=== PATIENT | female | born 1965 | race Caucasian/White ===

== ENCOUNTER → 2023-02-28 | Outpatient (CLI) | payer BC ==
--- NOTE | 2023-02-28 12:53 | Diagnostic Imaging Report ---
INDICATION: Left knee pain. COMPARISON: None FINDINGS: Multiple radiographic views of the left knee were obtained and show no evidence of acute fracture or dislocation. Osseous structures are intact. There are advanced osteoarthritic changes consisting of tricompartmental joint space narrowing with prominent osteophyte formations. There is also lateral subluxation of the tibia in respect to the femur. Otherwise, joint spaces are maintained. There is no large joint effusion. No unexpected radiopaque foreign bodies are seen. IMPRESSION: 1. Advanced osteoarthritic changes of the left knee, but no evidence of acute fracture or dislocation. Dictated by: Dictated on workstation # [id number]
== END ==
LOC: ORTHO 10:29
PROVIDERS: ATTEND Orthopaedic Surgery
DX: M17.12 Unilateral primary osteoarthritis, left knee (principal)
CPT/HCPCS: 20610; 73564; G0463; 99203

== ENCOUNTER → 2023-03-08 | Outpatient (CLI) | payer BC ==
--- NOTE | 2023-03-08 11:46 | Diagnostic Imaging Report ---
INDICATION: Routine screening. Comparison is made with prior mammogram from 06/27/2018. 2-D and 3-D bilateral screening mammography was performed with CAD. Both breasts are heterogeneously dense, limiting the sensitivity of mammography. No mass or malignant-appearing microcalcifications are identified. Axillae are unremarkable. IMPRESSION: No mammographic features suspicious for malignancy are identified. ACR BI-RADS Category 1: Negative. Result letter will be mailed to the patient. Note: At least 10% of breast cancer is not imaged by mammography. BI-RADS Category 1 Dictated by: Dictated on workstation # [id number]
== END ==
LOC: RAD 11:03
DX: Z12.31 Encounter for screening mammogram for malignant neoplasm of breast (principal); M25.571 Pain in right ankle and joints of right foot
CPT/HCPCS: 77063; 77067

== ENCOUNTER → 2023-03-20 | Outpatient (CLI) | payer BC | LOC: ORTHO 11:40 | PROVIDERS: ATTEND Orthopaedic Surgery | DX: S62.619A Displaced fracture of proximal phalanx of unspecified finger, initial encounter for closed fracture (principal); X58.XXXA Exposure to other specified factors, initial encounter | CPT/HCPCS: 99213 ==

== ENCOUNTER → 2023-04-03 | Outpatient (CLI) | payer BC ==
--- NOTE | 2023-04-03 17:44 | Diagnostic Imaging Report ---
Indication: Left finger fractures. Time of Exam: 1:11 PM Comparison is made with prior outside radiographs from 03/13/2023. Transversely oriented fracture through the base of the proximal phalanx of the 5th finger is again noted. Fracture line remains clearly visible without significant healing. Alignment is anatomic. Remaining phalanges as well as metacarpals are intact. Carpus is unremarkable. IMPRESSION: Fracture at the base of the proximal phalanx, 5th finger. Fracture line remains clearly visible. Alignment is anatomic. Dictated by: Dictated on workstation # [id number]
== END ==
LOC: ORTHO 12:57
PROVIDERS: ATTEND Orthopaedic Surgery
DX: S62.617A Displaced fracture of proximal phalanx of left little finger, initial encounter for closed fracture (principal); X58.XXXA Exposure to other specified factors, initial encounter
CPT/HCPCS: 73140; 99213

== ENCOUNTER → 2023-04-11 | Outpatient (CLI) | payer BC ==
--- NOTE | 2023-04-11 11:28 | Diagnostic Imaging Report ---
PROCEDURE: Pelvic comp/transvaginal sonogram. TECHNIQUE: Complete transabdominal and transvaginal pelvic ultrasound was performed. In addition, limited pelvic Doppler was performed. INDICATION: Right lower quadrant pain. Uterus is anteverted measuring 5.7 x 3.8 x 3.8 cm. Endometrium is 5 mm in thickness. There is a small cervical nabothian cyst. There are areas of heterogeneity in both anterior and posterior fundal regions which may represents fibroids. Largest area is posteriorly measuring approximately 16 mm. Right ovary cannot be visualized due to overlying bowel gas. Left ovary measures 1.7 x 1.1 x 2.3 cm. There is blood flow to left ovary. No adnexal mass or free fluid is detected. IMPRESSION: 1. Probable small uterine fibroids. 2. Nonvisualized right ovary due to overlying bowel gas. The study is otherwise unremarkable. Dictated by: Dictated on workstation # [id number]
== END ==
LOC: RAD 09:52
PROVIDERS: ATTEND Obstetrics & Gynecology
DX: R10.31 Right lower quadrant pain (principal)
CPT/HCPCS: 76830; 76856

== ENCOUNTER → 2023-05-08 | Outpatient (CLI) | payer BC ==
--- NOTE | 2023-05-08 14:36 | Diagnostic Imaging Report ---
EXAMINATION: Left fingers 2 or more views HISTORY: Fifth finger injury COMPARISON: 04/03/2023 FINDINGS: There is unchanged fracture at the base of the proximal phalanx of the fifth finger. No new fracture seen. Joint spaces are normal. IMPRESSION: 1. Unchanged alignment. Fracture at the base of the left fifth finger proximal phalanx. Dictated by: Dictated on workstation # [id number]
== END ==
LOC: ORTHO 10:38
PROVIDERS: ATTEND Orthopaedic Surgery
DX: S62.647D Nondisplaced fracture of proximal phalanx of left little finger, subsequent encounter for fracture with routine healing (principal); X58.XXXD Exposure to other specified factors, subsequent encounter
CPT/HCPCS: 20610; 73140

== ENCOUNTER → 2023-05-21 | Outpatient (CLI) | payer OTHER ==
--- NOTE | 2023-05-21 13:09 | Diagnostic Imaging Report ---
INDICATION: Neck pain. COMPARISON: None FINDINGS: Frontal, lateral, and open-mouth radiographic views of the cervical spine were obtained. Flexion and extension views were also provided in the lateral projection. AP static alignment is maintained. There is no significant anterolisthesis or retrolisthesis. There is no evidence of jumped facets. There is no abnormal translation with flexion or extension. Open-mouth view shows normal C1-C2 alignment. Patient is status post previous anterior fusion of C6 and C7. Hardware appears well seated and appropriately positioned. No unexpected radiopaque foreign bodies are seen. Moderate multilevel degenerative changes are noted and consists of intervertebral disc height loss with prominent anterior and posterior endplate osteophyte formations extending from C3-C4 through C5-C6. No acute fracture is seen. Surrounding soft tissue structures are unremarkable. IMPRESSION: 1. No acute fracture or dislocation lumbar spine. 2. Postsurgical changes of previous anterior fusion of C6-C7. 3. Moderate multilevel degenerative changes. Dictated by: Dictated on workstation # [id number]
== END ==
LOC: RAD 10:28
PROVIDERS: ATTEND Family Medicine
DX: M47.812 Spondylosis without myelopathy or radiculopathy, cervical region (principal); Z98.890 Other specified postprocedural states
CPT/HCPCS: 72050

== ENCOUNTER 2023-06-06 06:04 | Outpatient (CLI) | payer BC ==
[~2023-06-06] VITALS: Ht 182.8 cm; Wt 85.7 kg
[2023-06-06] MEDS ORDERED: HYDR-3820 PO (15:37)
[2023-06-06] MEDS ORDERED: METH-732 PO (15:37)
[2023-06-06] MEDS ORDERED: LISI1TAB48 PO (15:37)
[2023-06-06] MEDS ORDERED: AMLO-251 PO (15:37)
== END 2023-06-06 15:47 | disposition home or self-care (01) ==
LOC: PREOP 06:04
PROVIDERS: ATTEND Surgery
DX: Z01.818 Encounter for other preprocedural examination (principal)

== ENCOUNTER 2023-07-04 11:17 | Outpatient (CLI) | payer BC ==
[~2023-07-04] VITALS: Ht 180.3 cm; Wt 86.4 kg
[~2023-07-04 11:17] MED LIST changes: -ACYC400T21 PO
[2023-07-04 12:17] VITALS: BP 138/78
[2023-07-04] MEDS ORDERED: ACYC400T21 PO (12:31)
== END 2023-07-04 13:19 | disposition home or self-care (01) ==
LOC: PREOP 11:17
PROVIDERS: ATTEND Orthopaedic Surgery
DX: Z01.818 Encounter for other preprocedural examination (principal)

== ENCOUNTER → 2023-07-04 | Outpatient (CLI) | payer BC ==
[~2023-07-04] MED LIST: ACYC400T21 PO; AMLO-251 PO; HYDR-3820 PO; LISI1TAB48 PO; METH-732 PO
== END ==
LOC: ORTHO 10:43
PROVIDERS: ATTEND Orthopaedic Surgery
DX: M17.12 Unilateral primary osteoarthritis, left knee (principal)

== ENCOUNTER 2023-08-14 10:38 | Outpatient (CLI) | payer BC ==
[~2023-08-14] VITALS: Ht 180.3 cm; Wt 87.8 kg
[~2023-08-14 10:38] MED LIST changes: +ACYC400T21 PO
[2023-08-14 10:55] VITALS: BP 136/87
[2023-08-14 11:10] LABS: BASOPHILS # (AUTO) 0.1 10^3/uL (0.0-0.1); BASOPHILS % (AUTO) 1 % (0-10); EOSINOPHILS # (AUTO) 0.1 10^3/uL (0.0-0.3); EOSINOPHILS % (AUTO) 1 % (0-10); HEMATOCRIT 41 % (35-52); HEMOGLOBIN 14.3 g/dL (11.5-16.0); LYMPHOCYTES # (AUTO) 2.4 10^3/uL (1.0-4.0); LYMPHOCYTES % (AUTO) 31 % (12-44); MEAN CORPUSCULAR HEMOGLOBIN 33 pg (25-34); MEAN CORPUSCULAR HGB CONC 35 g/dL (32-36); MEAN CORPUSCULAR VOLUME 95 fL (80-99); MEAN PLATELET VOLUME 10.2 fL (9.0-12.2); MONOCYTES # (AUTO) 0.6 10^3/uL (0.0-1.0); MONOCYTES % (AUTO) 8 % (0-12); NEUTROPHILS # (AUTO) 4.4 10^3/uL (1.8-7.8); NEUTROPHILS % (AUTO) 58 % (42-75); PLATELET COUNT 338 10^3/uL (130-400); WHITE BLOOD COUNT 7.6 10^3/uL (4.3-11.0)
[2023-08-14 11:20] LABS: BACTERIA,URINE NEGATIVE /HPF; BILIRUBIN,URINE NEGATIVE (NEGATIVE); CLARITY,URINE CLEAR; COLOR,URINE YELLOW; GLUCOSE, URINE (UA) NEGATIVE (NEGATIVE); KETONES,URINE NEGATIVE (NEGATIVE); LEUKOCYTE ESTERASE ,URINE NEGATIVE (NEGATIVE); NITRITE,URINE NEGATIVE (NEGATIVE); PROTEIN,URINE NEGATIVE (NEGATIVE)
[2023-08-14 11:22] LABS: CALCIUM 9.7 MG/DL (8.5-10.1)
[2023-08-14 11:26] LABS: CREATININE SERUM 0.63 MG/DL (0.60-1.30)
== END 2023-08-14 11:59 ==
LOC: PREOP 10:38
PROVIDERS: ATTEND Orthopaedic Surgery
DX: Z01.818 Encounter for other preprocedural examination (principal); M17.11 Unilateral primary osteoarthritis, right knee
CPT/HCPCS: 36415; 80048; 81000; 85025; 87081

== ENCOUNTER 2023-08-20 07:09 | Day surgery (SDC) | payer BC ==
[2023-08-20] VITALS (10 sets, daily range): BP systolic 100–166; BP diastolic 66–90
[~2023-08-20] VITALS: Ht 180.3 cm; Wt 87.8 kg
[2023-08-20] MEDS ORDERED: ceFAZolin INJECTION 2,000 MG in NS (IVPB) 50 ML 50 ML IV ONE (07:30)
[2023-08-20] MEDS: LACTATED RINGERS 1,000 ML 1,000 ML IV PRN ×3 (07:55→10:30)
[2023-08-20] MEDS ORDERED: ONDANSETRON INJECTION 4 MG/2 ML (SDV) IVP PRN (08:30)
[2023-08-20] MEDS ORDERED: TRANEXAMIC ACID 100 MG/ML 10 ML INJECTION ONE (08:43)
[2023-08-20] MEDS ORDERED: KETAMINE 50 MG/5 ML SYRINGE ONE (08:47)
[2023-08-20] MEDS ORDERED: PHENYLEPHRINE 100 MCG/ML 10 ML (ANESTHESIA) SYR ONE (09:01)
[2023-08-20] MEDS ORDERED: ONDANSETRON INJECTION 4 MG/2 ML (SDV) ONE (09:05)
[2023-08-20] MEDS ORDERED: MIDAZOLAM INJ 2 MG/2 ML VIAL ONE (09:11)
[2023-08-20] MEDS ORDERED: proPOfol INJECTION 200 MG/20 ML VIAL IV ONE (10:13)
--- NOTE | 2023-08-20 10:59 | Operative Report - Ortho ---
Operative Report Surgeon (s)/Leisure Studies Professor (s) Surgeon BRIAN MACDONALD MD Leisure Studies Professor n/a Pre-Operative Diagnosis LEFT KNEE OSTEOARTHRITIS Post-Operative Diagnosis same Operative Report Date of Procedure: Aug 20, 2023 Name of Procedure Performed: Left Total Knee Arthroplasty Description & Findings After obtaining informed consent and marking the patient in the preoperative holding area, the patient did receive IV antibiotics. Patient was taken to the operating room and anesthesia was induced. Surgical timeout was taken. The left lower extremity was prepped and draped in the usual sterile fashion. Incision was made and carried down to fascia. Arthrotomy was performed on the medial side of the patella. Patella was retracted laterally and knee was flexed. Found to have circumferential osteophtye around the distal femur as well as exposed bone in the medial compartment. Hole was made in the distal femur for the intramedullary distal femoral cutting guide. Resection was made then the femur was sized as a 3. 4-in-1 block for a size [address]. Anterior cut was made and there was no notch. Posterior cut was made followed by the chamfers. Box cut was performed. Lug holes were drilled. Attention was turned to the tibial side, extramedullary tibial guide was put into place and aligned with the tibial crest. It was set to take 2 mm off of the affected medial side. Drop trevin was used to confirm alignment. Resection was made and was parallel to the joint line. Tibial bone block was removed. Lamina calender let off helper was put into place and the menisci and posterior osteophytes were removed. The knee was trialed with a size 3 femur and a size 3 tibia with an 11 mm poly trial. It was found to come out to full extension and flexed beyond 120 degrees. It was stable to varus and valgus stress throughout its range of motion. This was accepted. Knee was brought out into extension and the patella was prepared for an inset patellar button. Trial patella was placed and tracked well. Trial implants were removed. Tibial tray was pinned and punched. The cut bone surfaces were lavaged with pulsatile normal saline. Cement was mixed. Implants were opened and assembled on the back table. Cement was applied to the cut bone surfaces as well as the implant surfaces. A size 3 tibial component was impacted into place and excess cement was removed using a freer. A size 3 femoral component was impacted into place and excess cement was removed using a freer. Tibial tray was lavaged with saline. An 11 mm thick polyethylene component was locked into placed and the locking mechanism was elvira cked. Knee was brought into extension. Patella was irrigated and dried; patellar component was cemented into position. The cement was allowed to set. Irrisept soak was performed. The knee was once again trialed; found to come to full extension, flexed beyond 120 degrees, and was stable to varus and valgus stress. Tourniquet was dropped and electrocautery was used for hemostasis. Fascial layer was closed with #2 Stratafix. The subcutaneous layer was closed with 2-0 Vicryl. The skin was closed with gage. Wound was dressed with steri-strips, xeroform, 4x4s, ABD, webril, and EWA wrap. Patient tolerated the procedure well and was stable to the recovery room. Anesthesia Type Spinal Estimated Blood Loss minimal Specimen(s) collected/removed None BRIAN MACDONALD MD Aug 20, 2023 10:59
[2023-08-20] MEDS ORDERED: ACETAMINOPHEN 500 MG TABLET PO PRN (11:00)
[2023-08-20] MEDS ORDERED: BISACODYL 5 MG TABLET PO PRN (11:00)
[2023-08-20] MEDS ORDERED: MILK OF MAGNESIA 400 MG/5 ML 30 ML UDC PO PRN (11:00)
[2023-08-20] MEDS ORDERED: ONDANSETRON INJECTION 4 MG/2 ML (SDV) IV PRN (11:00)
[2023-08-20] MEDS ORDERED: morphine INJ 4 MG/ML 1 ML (VIAL/SYRINGE) IVP PRN ×4 (11:15→15:15)
[2023-08-20] MEDS ORDERED: HYDROcodone/ACETAMINOPHEN 10/325 TABLET PO PRN (11:15)
--- NOTE | 2023-08-20 11:30 | Diagnostic Imaging Report ---
CLINICAL INDICATION: Postop knee replacement. EXAM: X-ray of the left knee, two views. COMPARISON: None. FINDINGS: There is left total knee arthroplasty with components in good position. There is air involving the left knee and joint space anteriorly. Compression device and midline skin gage are noted anteriorly. IMPRESSION: There is a left total knee arthroplasty with components in good position. There is no unexpected radiodense foreign object. Dictated by: Dictated on workstation # [id number]
[2023-08-20] MEDS: METHOCARBAMOL 750 MG TABLET PO SCH ×2 (13:40→19:43)
--- NOTE | 2023-08-20 13:49 | Physical Therapy Evaluation ---
PT Evaluation-General Medical Diagnosis Admission Date August 20, 2023 Medical Diagnosis: left knee OA Onset Date: Aug 20, 2023 Therapy Diagnosis Therapy Diagnosis: impaired mobility,weakness Precautions Precautions/Isolations: Standard Precautions Weight Bear Status Right Lower Extremity: Right Full Weight Bearing Left Lower Extremity: Left Weight Bearing/Tolerated Referral Physician: Rosa Reason for Referral: Evaluation/Treatment Medical History Pertinent Medical History: OA Current History s/p elective left TKR Reviewed History: Yes Social History Home: Single Level Current Living Status: Spouse Prior Prior Level of Function SCALE: Activities may be completed with or without assistive devices. 3-Zymstmmiku-kzlnbej completes the activity by him/herself with no assistance from a helper. 5-Set-up or Clean-up Assistance-helper sets up or cleans up; patient completes activity. [place] assists only prior to or following the activity. 4-Supervision or Touching Assistance-helper provides verbal cues and/or touching/steadying and/or contact guard assistance as patient completes activity. Assistance may be provided throughout the activity or intermittently. 3-Partial/Moderate Assistance-helper does LESS THAN HALF the effort. Levant lifts, holds or supports trunk or limbs, but provides less than half the effort. 2-Substantial/Maximal Assistance-helper does MORE THAN HALF the effort. [place]ant lifts or holds trunk or limbs and provides more than half the effort. 7-Ixrnjhkgm-gnyavn does ALL the effort. Patient does none of the effort to complete the activity. Or, the assistance of 2 or more helpers is required for the patient to complete the activity. If activity was not attempted, code reason: 7-Patient Refused. 9-Not Applicable-not attempted and the patient did not perform the activity before the current illness, exacerbation or injury. 10-Not Attempted due to Environmental Limitations-(lack of equipment, weather restraints, etc.). 88-Not Attempted due to Medical Conditions or Safety Concerns. Bed Mobility: 6 Transfers (B,C,W/C): 6 Gait: 6 Stairs: 6 Indoor Mobility (Ambulation): Independent Stairs: Independent Prior Devices Use: None PT Evaluation-Current Subjective Patient agrees to PT. Pain Numeric Pain Scale: 10-Worst Possible Pain Location: Left Location Body Site: Knee Pain Description: Acute Comment: all pain meds issued Objective Patient Orientation: Normal For Age Attachments: Recio Catheter, IV ROM/Strength ROM Lower Extremities left knee flexion 60 degrees, extension 0/right LE WFL Strength Lower Extremities left LE 3/5 grossly, right LE 5/5 Integumentary/Posture Bladder Incontinence: Recio Cath Posture WFL Neuromuscular (Tone, Coordination, Reflexes) grossly intact Sensory Vision: Functional Hearing: Functional Transfers Lying to Sitting/Side of Bed(Q: 4 Sit to Stand (QC): 4 Chair/Kob-ek-Hfchs Xfer(QC): 4 Gait Mode of Locomotion: Walk Anticipated Mode of Locomotion: Walk Walk 10 feet (QC): 4 Walk 50 ft with 2 Turns(QC): 88 Distance: 30' Gait Assistive Device: FWW Comments/Gait Description slow, antalgic Balance Sitting Static: Normal Sitting Dynamic: Normal Standing Static: Fair Standing Dynamic: Fair Assessment/Needs Patient will benefit from skilled PT to address functional strength and mobility to improve current LOF to safely return to home at maximum LOF. Rehab Potential: Good PT Detention Goals Broadcast Journalist Goals PT Broadcast Journalist Goals Time Frame: Aug 25, 2023 Roll Left & Right (QC): 6 Sit to Lying (QC): 6 Lying-Sitting on Side/Bed(QC): 6 Sit to Stand (QC): 6 Chair/Fhn-qu-Ihwno Xfer(QC): 6 Toilet Transfer (QC): 6 Walk 10 feet (QC): 6 Walk 50ft with 2 Turns (QC): 6 Walk 150 ft (QC): 6 PT Plan Problem List Problem List: Activity Tolerance, Gait, Transfer, Bed Mobility, ROM Treatment/Plan Treatment Plan: Continue Plan of Care Treatment Plan: Bed Mobility, Education, Functional Activity Joshua, Functional Strength, Gait, Safety, Therapeutic Exercise, Transfers Treatment Duration: Aug 25, 2023 Frequency: 11 times per week Estimated Hrs Per Day: .5 hour per day Patient and/or Family Agrees t: Yes Time Time In: 1321 Time Out: 1336 DATE: Aug 20, 2023 Total Billed Treatment Time: 15 Total Billed Treatment 1 visit [facility] 15 min LUIS MIGUEL LARSEN PT Aug 20, 2023 13:49
--- NOTE | 2023-08-20 14:08 | Occupational Therapy Eval ---
OT Evaluation-General/PLF Medical Diagnosis Admission Date Medical Diagnosis: left knee OA Onset Date: Aug 20, 2023 Therapy Diagnosis Therapy Diagnosis: weakness, pain Precautions Precautions/Isolations: Standard Precautions Weight Bear Status Weight Bearing Restriction: Weight Bearing/Tolerated Location Restriction: L LE Referral Physician: Rosa Referral Reason: Self Care, Evaluation/Treatment Medical History Pertinent Medical History: OA Reviewed History: Yes Social History Home: Single Level Current Living Status: Spouse ADL-Prior Level of Function SCALE: Activities may be completed with or without assistive devices. 8-Bfsabqwbnv-mkgjfut completes the activity by him/herself with no assistance from a helper. 5-Set-up or Clean-up Assistance-helper sets up or cleans up; patient completes activity. Dailey assists only prior to or following the activity. 4-Supervision or Touching Assistance-helper provides verbal cues and/or touching/steadying and/or contact guard assistance as patient completes activity. Assistance may be provided throughout the activity or intermittently. 3-Partial/Moderate Assistance-helper does LESS THAN HALF the effort. Dailey lifts, holds or supports trunk or limbs, but provides less than half the effort. 2-Substantial/Maximal Assistance-helper does MORE THAN HALF the effort. Dailey lifts or holds trunk or limbs and provides more than half the effort. 2-Ytxnlnxpt-xuddhw does ALL the effort. Patient does none of the effort to complete the activity. Or, the assistance of 2 or more helpers is required for the patient to complete the activity. If activity was not attempted, code reason: 7-Patient Refused. 9-Not Applicable-not attempted and the patient did not perform the activity before the current illness, exacerbation or injury. 10-Not Attempted due to Environmental Limitations-(lack of equipment, weather restraints, etc.). 88-Not Attempted due to Medical Conditions or Safety Concerns. ADL PLOF Comments Independent at home. Self Care: Independent Functional Cognition: Independent Drive Self: Yes OT Current Status Subjective Agreeable to therapy Pain Numeric Pain Scale: 8 Location: Left Location Body Site: Knee Comment: RN aware and [id number] agarwal meds Mental Status/Objective Patient Orientation: Person, Place, Time, Situation Attachments: Recio Catheter, Polar Pack Current Hearing Aids: No Dentures/Partials: No Hand Dominance: Right Upper Extremity ROM BUE ROM WFLs Upper Extremity Coordination BUE WFLS, intact FMC/GMC Upper Extremity Strength WFLs ADL-Treatment Eating (QC): 6 Oral Hygiene (QC): 6 Shower/Bathe Self (QC): 7 Upper Body Dressing (QC): 5 Lower Body Dressing (QC): 3 On/Off Footwear (QC): 1 Toileting Hygiene (QC): 3 Education OT Patient Education: Correct positioning, Modified ADL techniques, Progress toward Goal/Update tx plan, Purpose of tx/functional activities, Reviewed precautions, Rehab process, Safety issues, Transfer techniques, Use of adapted equipment Teaching Recipient: Patient Teaching Methods: Demonstration, Discussion Response to Teaching: Verbalize Understanding, Reinforcement Needed OT Chcf Goals Chcf Goals Eating (QC): 6 Oral Hygiene (QC): 6 Toileting Hygiene (QC): 6 Shower/Bathe Self (QC): 6 Upper Body Dressing (QC): 6 Lower Body Dressing (QC): 6 On/Off Footwear (QC): 6 1=Demonstrate adherence to instructed precautions during ADL tasks. 2=Patient will verbalize/demonstrate understanding of assistive devices/modifications for ADL. 3=Patient will improve strength/tolerance for activity to enable patient to perform ADL's. OT Education/Plan Problem List/Assessment Assessment: Decreased Activ Tolerance, Impaired Self-Care Skills Discharge Recommendations Plan/Recommendations: Continue POC Treatment Plan/Plan of Care Treatment,Training & Education: Yes Patient would benefit from OT for education, treatment and training to promote independence in ADL's, mobility, safety and/or upper extremity function for ADL's. Plan of Care: ADL Retraining, Functional Mobility, Group Exercise/Act as Ind, UE Funct Exercise/Act Treatment Duration: Aug 24, 2023 Frequency: 3 times per week (3-5 times per week) Rehab Potential: Guarded Up in recliner Time Start Time: 13:40 Stop Time: 13:55 DATE: Aug 20, 2023 Total Time Billed (hr/min): 15 Billed Treatment Time ALE 15 LUCILA MAGAÑA OT Aug 20, 2023 14:08
[2023-08-20] MEDS: LORazepam 0.5 MG TABLET PO PRN ×2 (15:15→23:00)
[2023-08-20] MEDS: HYDROcodone/ACETAMINOPHEN 10/325 TABLET PO PRN ×3 (15:16→23:34)
--- NOTE | 2023-08-20 15:22 | Consultation ---
JAGDISH KHALIL 08/20/23 1522: HPI History of Present Illness: HPI/Chief Complaint Pt had left knee arthroplasty performed this morning. Pt currently complains of left lateral knee pain that radiates to the front of her knee. Pain is described as a sharp and achy pain. It ranges from a 7 to a 10 out of 10 on the pain scale. She is currently requesting more pain medications. Pt denies any abdominal pain, constipation, COLEMAN, or SOB. Source: patient Date Seen 08/20/23 at 1445H. Attending Physician Alex James MD PCP Admitting Physician: Pascual Lee MD Attending Physician: Pascual Lee MD Referring Physician Date of Admission Home Medications & Allergies Home Medications Reviewed patient Home Medication Reconciliation performed by pharmacy medication reconciliations sterile technician and/or nursing. Patients Allergies have been reviewed. 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 1/2 ppd since teenager.) Substance use?: No Alcohol Use?: No Immunizations Up To Date Tetanus Booster (TDap): Unknown Hepatitis A: No Hepatitis B: No Seasonal Allergies Seasonal Allergies: Yes Current Status status: No status: No Communicates: Verbally Primary Language: Grenadian Is interpretation needed?: No Sensory deficits: Vision impairment, Hearing impairment Past Medical History Surgeries: Orthopedic (left knee arthroplasty 2022. C6-C7 fusion in in [place].) Hypertension Sexually Transmitted Disease: No HIV/AIDS: No Gastroesophageal Reflux, Diverticulosis, Hemorrhoids, Polyps Degenerate Disk Disease, Arthritis, Fractures Loss of Vision: Denies Hearing Impairment: Hard of Hearing Blood Disorders: No Adverse Reaction/Blood Tranf: No Family Medical History Diabetes mellitus 19 FATHER, , Age:79 FH: breast cancer 19 MOTHER FH: lupus G8 SISTER Glioblastoma 19 FATHER, , Age:79 Hypertension 19 MOTHER Thyroid disease 19 MOTHER G8 BROTHER G8 SISTER Review of Systems Constitutional: No chills, No dizziness, No fever, No malaise, No weakness EENTM: No ear pain, No eye pain Respiratory: No cough, No short of breath Cardiovascular: No chest pain, No palpitations Gastrointestinal: No abdominal pain, No constipation Musculoskeletal: joint pain (left knee) Psychiatric/Neurological: Denies Headache, Denies Numbness, Denies Tingling Physical Exam Physical Exam Vital Signs Vital Signs - First Documented 08/20/23 11:45 Pulse 95 Capillary Refill : Less Than 3 Seconds Height, Weight, BMI Height: '" Weight: lbs. oz. 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 Assessment/Plan Assessment and Plan Assess & Plan/Chief Complaint Assessment: Left Total Knee Arthroplasty HTN Plan: Left Total Knee Arthroplasty -continue to monitor pain -therapy will work with pt HTN -start at home BP medications -monitor labs and BP RAYNE ALVAREZ DO 08/21/23 0454: HPI History of Present Illness: HPI/Chief Complaint Chief complaint: Left knee replacement and recovery HPI: This is a 78-year-old female who presented following a left knee replacement by Dr. Rosa mendez. Home medication was restarted. Patient currently having a lot of pain. The block did not work. 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 1/2 ppd since teenager.) Past Medical History Surgeries: Orthopedic (left knee arthroplasty 2022. C6-C7 fusion in in [place].) High Cholesterol, Hypertension Family Medical History Diabetes mellitus 19 FATHER, , Age:79 FH: breast cancer 19 MOTHER FH: lupus G8 SISTER Glioblastoma 19 FATHER, , Age:79 Hypertension 19 MOTHER Thyroid disease 19 MOTHER G8 BROTHER G8 SISTER Review of Systems Constitutional: see HPI Musculoskeletal: joint pain (left knee) Physical Exam Physical Exam General Appearance: WD/WN, Anxious, Moderate Distress (in a lot of pain) Eyes: Bilateral Eye Normal Inspection, Bilateral Eye PERRL HEENT: PERRL/EOMI, Normal ENT Inspection, Pharynx Normal Neck: Full Range of Motion, Normal Inspection, Non Tender, Supple, Carotid Bruit Respiratory: Chest Non Tender, Lungs Clear, Normal Breath Sounds, No Accessory Muscle Use, No Respiratory Distress Cardiovascular: Regular Rate, Rhythm, No Edema, No Gallop, No JVD, No Murmur, Normal Peripheral Pulses Gastrointestinal: Normal Bowel Sounds, No Organomegaly, No Pulsatile Mass, Non Tender, Soft Back: Normal Inspection, No CVA Tenderness, No Vertebral Tenderness Extremity: Normal Capillary Refill, Normal Inspection, Normal Range of Motion (Except left leg), Non Tender, No Calf Tenderness, No Pedal Edema Neurologic/Psychiatric: Alert, Oriented x3, No Motor/Sensory Deficits, Normal Mood/Affect Skin: Normal Color, Warm/Dry Lymphatic: No Adenopathy Assessment/Plan Assessment and Plan Assess & Plan/Chief Complaint Assessment: Left total knee replacement Hypertension Former smoker Plan: Pain control Check labs in a.m. Supportive care Supervisory-Addendum Brief Verification & Attestation Participated in pt care: history, MDM, physical Personally performed: exam, history, MDM, supervision of care Care discussed with: Medical Student Procedures: n/a Results interpretation: Verified all documentation Verification and Attestation of Medical Student E/M Service A medical student performed and documented this service in my presence. I reviewed and verified all information documented by the medical student and made modifications to such information, when appropriate. I personally performed the physical exam and medical decision making. Rayne Alvarez Aug 21, 2023,04:52 JAGDISH KHALIL Aug 20, 2023 15:22 RAYNE ALVAREZ DO Aug 21, 2023 04:54
[2023-08-20] MEDS: morphine INJ 4 MG/ML 1 ML (VIAL/SYRINGE) IVP PRN ×3 (15:45→21:10)
[2023-08-20] MEDS: NS IV 1000 ML 1,000 ML IV SCH ×2 (16:34→19:44)
[2023-08-20] MEDS: ceFAZolin INJECTION 2,000 MG in NS (IVPB) 50 ML 50 ML IV SCH ×2 (16:35→23:34)
[2023-08-20] MEDS: ASPIRIN enteric coated 81MG TABLET PO SCH (16:35)
[2023-08-20] MEDS: CELECOXIB 100 MG CAPSULE PO SCH (19:42)
[2023-08-20] MEDS: DOCUSATE SODIUM 100 MG CAPSULE PO SCH (19:46)
[2023-08-20] MEDS ORDERED: hydrALAZINE 25 MG TABLET PO PRN (20:30)
[2023-08-20] MEDS ORDERED: ceFAZolin INJECTION 2,000 MG in NS (IVPB) 50 ML 50 ML IV SCH (21:00)
[2023-08-21] VITALS (7 sets, daily range): BP systolic 137–170; BP diastolic 79–89
[2023-08-21] MEDS: morphine INJ 4 MG/ML 1 ML (VIAL/SYRINGE) IVP PRN ×4 (01:27→16:14)
[2023-08-21] MEDS: HYDROcodone/ACETAMINOPHEN 10/325 TABLET PO PRN ×5 (03:32→22:09)
[2023-08-21] MEDS: NS IV 1000 ML 1,000 ML IV SCH ×3 (04:22→20:14)
[2023-08-21 05:26] LABS: BASOPHILS % (AUTO) 0 % (0-10); EOSINOPHILS % (AUTO) 0 % (0-10); HEMATOCRIT 35 % (35-52); HEMOGLOBIN 12.3 g/dL (11.5-16.0); LYMPHOCYTES # (AUTO) 1.2 10^3/uL (1.0-4.0); LYMPHOCYTES % (AUTO) 14 % (12-44); MEAN CORPUSCULAR HEMOGLOBIN 33 pg (25-34); MEAN CORPUSCULAR HGB CONC 36 g/dL (32-36); MEAN CORPUSCULAR VOLUME 94 fL (80-99); MONOCYTES % (AUTO) 11 % (0-12); NEUTROPHILS # (AUTO) 6.9 10^3/uL (1.8-7.8); NEUTROPHILS % (AUTO) 75 % (42-75); PLATELET COUNT 268 10^3/uL (130-400); WHITE BLOOD COUNT 9.1 10^3/uL (4.3-11.0)
[2023-08-21] MEDS: THERAPEUTIC MULTIVITAMIN W/MINERALS TABLET PO SCH (05:34)
[2023-08-21 05:45] LABS: ALBUMIN 3.8 GM/DL (3.2-4.5); BILIRUBIN,TOTAL 0.6 MG/DL (0.1-1.0); CALCIUM 8.9 MG/DL (8.5-10.1); CREATININE SERUM 0.58 MG/DL (0.60-1.30); POTASSIUM 3.5 MMOL/L (3.6-5.0); TOTAL PROTEIN 6.1 GM/DL (6.4-8.2)
[2023-08-21] MEDS: CELECOXIB 100 MG CAPSULE PO SCH ×2 (08:12→19:54)
[2023-08-21] MEDS: ASPIRIN enteric coated 81MG TABLET PO SCH ×2 (08:12→17:50)
[2023-08-21] MEDS: ACYCLOVIR 400 MG CAPSULE/TABLET PO SCH (08:13)
[2023-08-21] MEDS: METHOCARBAMOL 750 MG TABLET PO SCH ×2 (08:13→19:54)
[2023-08-21] MEDS: amLODIPine 10 MG TABLET PO SCH (08:13)
[2023-08-21] MEDS: DOCUSATE SODIUM 100 MG CAPSULE PO SCH ×2 (08:15→19:54)
[2023-08-21] MEDS ORDERED: POTASSIUM CHLORIDE 20 MEQ TABLET PO ONE (08:45)
[2023-08-21] MEDS ORDERED: NON-FORMULARY MEDICATION 1 EA EA (Lisinopril/Hydrochlorothiazide (Lisinopril-Hctz 20-25 mg PO SCH (09:00)
--- NOTE | 2023-08-21 09:36 | Progress Note - Ortho ---
Progress Note Subjective Date of Exam 08/21/23 Chief Complaint POD #1 L TKA HPI/Events since last exam having significant issues with pain control (narcotic exposure prior to surgery), was able to get up with therapy yesterday, concerned that block was not effective Review of Systems - Allergies: Coded Allergies: Penicillins (Unverified Allergy, Severe, HIVES, 08/14/23) Home Meds Reported Medications Acyclovir (Acyclovir) 400 Mg Tablet, 400 MG PO DAILY, TAB 07/04/23 Hydrocodone/Acetaminophen (Hydrocodone-Acetamin 10-325 mg) 10 Mg-325 Mg Tablet, 1 EACH PO QID PRN for PAIN, TAB 06/06/23 Methocarbamol (Methocarbamol) 750 Mg Tablet, 750 MG PO BID, % 06/06/23 Amlodipine Besylate (Amlodipine Besylate) 10 Mg Tablet, 10 MG PO DAILY, TAB 06/06/23 Lisinopril/Hydrochlorothiazide (Lisinopril-Hctz 20-25 mg Tab) 20 Mg-25 Mg Tablet, 1 EACH PO DAILY, TAB 06/06/23 Objective Exam L Knee: Dressing C/D/I, +DF of ankle, no s/s of DVT Vital Signs Vital Signs Date Time Temp Pulse Resp B/P (MAP) Pulse Ox O2 Delivery O2 Flow Rate FiO2 08/21/23 07:20 36.8 105 18 170/89 (116) 95 Room Air 08/21/23 03:25 36.9 107 18 152/82 (105) 95 Room Air 08/20/23 23:48 36.8 106 18 155/81 (105) 97 Room Air 08/20/23 20:12 37.1 106 20 156/90 (112) 96 Room Air 08/20/23 19:45 Room Air 08/20/23 16:15 36.5 107 18 166/87 (113) 96 Room Air 08/20/23 11:45 36.4 95 18 131/80 (97) 97 Room Air 08/20/23 11:30 36.6 18 125/76 (92) 98 Room Air 08/20/23 11:30 Room Air 08/20/23 11:22 Room Air 08/20/23 11:20 18 122/74 (90) 98 Room Air 08/20/23 11:16 Room Air 11/27/23 11:10 18 118/75 (89) 99 Room Air 08/20/23 11:06 Room Air 08/20/23 11:00 18 100/71 (81) 98 Room Air 08/20/23 11:00 Room Air 08/20/23 10:50 Room Air 08/20/23 10:50 18 106/76 (86) 98 Room Air 08/20/23 10:41 Room Air 08/20/23 10:41 36.4 18 106/66 (79) 98 Room Air I & O 08/21/23 06:59 Intake Total 6550 ml Output Total 6725 ml Balance -175 ml Lab Results Laboratory Tests 08/21/23 05:10: White Blood Count 9.1, Red Blood Count 3.70L, Hemoglobin 12.3, Hematocrit 35, Mean Corpuscular Volume 94, Mean Corpuscular Hemoglobin 33, Mean Corpuscular Hemoglobin Concent 36, Red Cell Distribution Width 11.4, Platelet Count 268, Mean Platelet Volume 10.0, Immature Granulocyte % (Auto) 0, Neutrophils (%) (Auto) 75, Lymphocytes (%) (Auto) 14, Monocytes (%) (Auto) 11, Eosinophils (%) (Auto) 0, Basophils (%) (Auto) 0, Neutrophils # (Auto) 6.9, Lymphocytes # (Auto) 1.2, Monocytes # (Auto) 1.0, Eosinophils # (Auto) 0.0, Basophils # (Auto) 0.0, Immature Granulocyte # (Auto) 0.0, Sodium Level 135, Potassium Level 3.5L, Chloride Level 100, Carbon Dioxide Level 25, Anion Gap 10, Blood Urea Nitrogen 5L, Creatinine 0.58L, Estimat Glomerular Filtration Rate 105, BUN/Creatinine Ratio 9, Glucose Level 101, Calcium Level 8.9, Corrected Calcium 9.1, Total Bilirubin 0.6, Aspartate Amino Transf (AST/SGOT) 14, Alanine Aminotransferase (ALT/SGPT) 7, Alkaline Phosphatase 95, Total Protein 6.1L, Albumin 3.8 Imaging 2 postop views of left knee dated 08/20/23 were reviewed from PACS and demonstrated prior total knee arthroplasty with components in good position, no complicating features Assessment and Plan Assessment L Knee OA s/p TKA Problem List Left Knee OA s/p TKA Plan PT/OT DVT Prophylaxis Home tomorrow with home health therapy versus outpatient therapy Final Diagonsis Left Knee OA s/p TKA Level of the visit: Level 3 (global) BRIAN MACDONALD MD Aug 21, 2023 09:36
--- NOTE | 2023-08-21 09:52 | Physical Therapy Daily Note ---
PT Daily Note-Current Subjective Patient agrees to therapy. Noted improvement in left knee pain control on this date. Pain Numeric Pain Scale: 7 Location: Left Location Body Site: Knee Pain Description: Acute Comment: meds issued prior Section J - Health Conditions 1. Rarely or not at all 2. Occasionally 3. Frequently 4. Almost constantly 8. Unable to answer Pain Effect on Sleep: 3 Pain Interference with Therapy: 2 Pain Interference w/Day-to-Day: 2 Mental Status Patient Orientation: Normal For Age Transfers SCALE: Activities may be completed with or without assistive devices. 4-Czsydjybxw-bygdhun completes the activity by him/herself with no assistance from a helper. 5-Set-up or Clean-up Assistance-helper sets up or cleans up; patient completes activity. [place] assists only prior to or following the activity. 4-Supervision or Touching Assistance-helper provides verbal cues and/or touching/steadying and/or contact guard assistance as patient completes activity. Assistance may be provided throughout the activity or intermittently. 3-Partial/Moderate Assistance-helper does LESS THAN HALF the effort. [place] lifts, holds or supports trunk or limbs, but provides less than half the effort. 2-Substantial/Maximal Assistance-helper does MORE THAN HALF the effort. [place] lifts or holds trunk or limbs and provides more than half the effort. 9-Blolymxnq-nfznym does ALL the effort. Patient does none of the effort to complete the activity. Or, the assistance of 2 or more helpers is required for the patient to complete the activity. If activity was not attempted, code reason: 7-Patient Refused. 9-Not Applicable-not attempted and the patient did not perform the activity before the current illness, exacerbation or injury. 10-Not Attempted due to Environmental Limitations-(lack of equipment, weather restraints, etc.). 88-Not Attempted due to Medical Conditions or Safety Concerns. Lying to Sitting/Side of Bed(Q: 6 Sit to Stand (QC): 6 Chair/Liy-sl-Dxlfz Xfer(QC): 5 Toilet Transfer (QC): 5 Weight Bearing Right Lower Extremity: Right Full Weight Bearing Left Lower Extremity: Left Weight Bearing/Tolerated Gait Training Distance: 250' Walk 10 feet (QC): 5 Walk 50 ft with 2 Turns(QC): 5 Walk 150 ft (QC): 5 Gait Assistive Device: FWW slow, antalgic Exercises Supine Ex: Ankle pumps, Quad Set, Heel Slides, Straight leg raise Supine Reps: 15 Assessment Patient instructed to be up ad marylu in room to encourage independence. RN notified. Patient resistive with left knee flexion and use of quad due to pain. Patient educated on performing exercises PRN to improve mobility, ROM and decrease pain. Patient voices understanding. PT Care Home Goals Manager Industrial Goals PT Care Home Goals Time Frame: Aug 25, 2023 Roll Left & Right (QC): 6 Sit to Lying (QC): 6 Lying-Sitting on Side/Bed(QC): 6 Sit to Stand (QC): 6 Chair/Akw-ga-Bdnbo Xfer(QC): 6 Toilet Transfer (QC): 6 Walk 10 feet (QC): 6 Walk 50ft with 2 Turns (QC): 6 Walk 150 ft (QC): 6 PT Plan Treatment/Plan Treatment Plan: Continue Plan of Care Treatment Plan: Bed Mobility, Education, Functional Activity Joshua, Functional Strength, Gait, Safety, Therapeutic Exercise, Transfers Treatment Duration: Aug 25, 2023 Frequency: 11 times per week Estimated Hrs Per Day: .5 hour per day Patient and/or Family Agrees t: Yes Time Time In: 852 Time Out: 915 DATE: Aug 21, 2023 Total Billed Treatment Time: 23 Total Billed Treatment 1 visit EX 12 min GT 11 min LUIS MIGUEL LARSEN PT Aug 21, 2023 09:52
--- NOTE | 2023-08-21 10:07 | Occupational Ther Daily Note ---
OT Current Status-Daily Note Subjective Agreeable to OT Pain Numeric Pain Scale: 6 Location Body Site: Knee Mental Status/Objective Patient Orientation: Person, Place, Time, Situation ADL-Treatment OT reiterated transfer sequence w/ S/P TKA, use of FWW and GBs for safety, education for LB dressing sequence Therapy Code Descriptions/Definitions Functional [place] Measure: 0=Not Assessed/NA 4=Minimal Assistance 1=Total Assistance 5=Supervision or Setup 2=Maximal Assistance 6=Modified [place] 3=Moderate Assistance 7=Complete IndependenceSCALE: Activities may be completed with or without assistive devices. 6-Hldykrqglt-vcdxbfv completes the activity by him/herself with no assistance from a helper. 5-Set-up or Clean-up Assistance-helper sets up or cleans up; patient completes activity. [place] assists only prior to or following the activity. 4-Supervision or Touching Assistance-helper provides verbal cues and/or touching/steadying and/or contact guard assistance as patient completes activity. Assistance may be provided throughout the activity or intermittently. 3-Partial/Moderate Assistance-helper does LESS THAN HALF the effort. [place] lifts, holds or supports trunk or limbs, but provides less than half the effort. 2-Substantial/Maximal Assistance-helper does MORE THAN HALF the effort. [place] lifts or holds trunk or limbs and provides more than half the effort. 7-Oqnhurywn-swntij does ALL the effort. Patient does none of the effort to complete the activity. Or, the assistance of 2 or more helpers is required for the patient to complete the activity. If activity was not attempted, code reason: 7-Patient Refused. 9-Not Applicable-not attempted and the patient did not perform the activity before the current illness, exacerbation or injury. 10-Not Attempted due to Environmental Limitations-(lack of equipment, weather restraints, etc.). 88-Not Attempted due to Medical Conditions or Safety Concerns. Eating (QC): 6 Oral Hygiene (QC): 6 (standing at sink w/ FWW) Upper Body Dressing (QC): 5 Lower Body Dressing (QC): 5 On/Off Footwear: 6 Toileting Hygiene (QC): 5 Toilet Transfer (QC): 5 patient retrieval garments from bag, OT did not hand garment to patient Education OT Patient Education: Exercise program, Modified ADL techniques, Progress toward Goal/Update tx plan, Purpose of tx/functional activities, Reviewed precautions, Rehab process, Safety issues, Transfer techniques, Use of adapted equipment Teaching Recipient: Patient Teaching Methods: Demonstration, Discussion Response to Teaching: Return Demonstration OT Accounts Payable Specialist Goals Accounts Payable Specialist Goals Eating (QC): 6 Oral Hygiene (QC): 6 Toileting Hygiene (QC): 6 Shower/Bathe Self (QC): 6 Upper Body Dressing (QC): 6 Lower Body Dressing (QC): 6 On/Off Footwear (QC): 6 1=Demonstrate adherence to instructed precautions during ADL tasks. 2=Patient will verbalize/demonstrate understanding of assistive devices/modifications for ADL. 3=Patient will improve strength/tolerance for activity to enable patient to perform ADL's. OT Education/Plan Problem List/Assessment Assessment: Decreased Activ Tolerance Discharge Recommendations Plan/Recommendations: Discharge/Goals Met Treatment Plan/Plan of Care Patient would benefit from OT for education, treatment and training to promote independence in ADL's, mobility, safety and/or upper extremity function for ADL's. Plan of Care: ADL Retraining, Functional Mobility, Group Exercise/Act as Ind, UE Funct Exercise/Act Treatment Duration: Aug 24, 2023 Frequency: 3 times per week (3-5 times per week) Rehab Potential: Guarded Time Start Time: 08:53 Stop Time: 09:15 DATE: Aug 21, 2023 Total Time Billed (hr/min): 22 Billed Treatment Time ADL 22 min LUCILA MAGAÑA OT Aug 21, 2023 10:07
--- NOTE | 2023-08-21 10:38 | Progress Note ---
JAGDISH KHALIL 08/21/23 1037: Subjective Date Seen by a Provider: Aug 21, 2023 Time Seen by a Provider: 09:45 Subjective/Events-last exam Pt reports that the pain in her left knee is improving. Rates it a 3-4/10 currently. Pt reports that therapy this morning went well and she was able to do what was asked of her. The only thing that she had discomfort with was bending her left knee. Pt has been eating and drinking without problems. Pt is requesting to continue lorazepam as needed because it helped with her pain over night. Review of Systems General: No Chills, No Night Sweats HEENT: No Head Aches, No Visual Changes, No Eye Pain, No Ear Pain Pulmonary: No Cough Cardiovascular: No: Chest Pain, Palpitations Gastrointestinal: No: Nausea, Vomiting, Abdominal Pain Musculoskeletal: other (left knee pain) Neurological: No: Weakness, Numbness, Incoordination, Change in speech, Confusion Objective Exam Last Set of Vital Signs Vital Signs Date Time Temp Pulse Resp B/P (MAP) Pulse Ox O2 Delivery O2 Flow Rate FiO2 08/21/23 07:20 36.8 105 18 170/89 (116) 95 Room Air Capillary Refill : Less Than 3 Seconds I&O Intake and Output 08/20/23 23:59 Intake Total 3700 ml Output Total 1825 ml Balance 1875 ml Intake Oral 1650 ml IV Total 2050 ml Output Urine Total 1825 ml General: Alert, Oriented X3, Cooperative, No Acute Distress HEENT: PERRLA, EOMI Neck: No JVD, No Thyromegaly Lungs: Clear to Auscultation, Normal Air Movement Heart: Regular Rate, Normal S1, Normal S2, No Murmurs Abdomen: Normal Bowel Sounds, Soft, No Tenderness Extremities: No Clubbing, No Cyanosis, Normal Pulses (2+ b/l radius and posterior tibialis) Neuro: Normal Speech, Strength at 5/5 X4 Ext, Sensation Intact, Cranial Nerves 3-12 NL Psych/Mental Status: Mental Status NL, Mood NL Results Lab Laboratory Tests 08/21/23 05:10: White Blood Count 9.1, Red Blood Count 3.70L, Hemoglobin 12.3, Hematocrit 35, Mean Corpuscular Volume 94, Mean Corpuscular Hemoglobin 33, Mean Corpuscular Hemoglobin Concent 36, Red Cell Distribution Width 11.4, Platelet Count 268, Me an Platelet Volume 10.0, Immature Granulocyte % (Auto) 0, Neutrophils (%) (Auto) 75, Lymphocytes (%) (Auto) 14, Monocytes (%) (Auto) 11, Eosinophils (%) (Auto) 0, Basophils (%) (Auto) 0, Neutrophils # (Auto) 6.9, Lymphocytes # (Auto) 1.2, Monocytes # (Auto) 1.0, Eosinophils # (Auto) 0.0, Basophils # (Auto) 0.0, Immature Granulocyte # (Auto) 0.0, Sodium Level 135, Potassium Level 3.5L, Chloride Level 100, Carbon Dioxide Level 25, Anion Gap 10, Blood Urea Nitrogen 5L, Creatinine 0.58L, Estimat Glomerular Filtration Rate 105, BUN/Creatinine Ratio 9, Glucose Level 101, Calcium Level 8.9, Corrected Calcium 9.1, Total Bilirubin 0.6, Aspartate Amino Transf (AST/SGOT) 14, Alanine Aminotransferase (ALT/SGPT) 7, Alkaline Phosphatase 95, Total Protein 6.1L, Albumin 3.8 Assessment/Plan Assessment/Plan Assess & Plan/Chief Complaint Assessment: Left Knee Osteoarthritis s/p Total Knee Arthroplasty HTN Former Smoker Plan: Left Knee Osteoarthritis s/p Total Knee Arthroplasty -continue OT/PT -manage pain with medications and lorazepam prn HTN -monitor BP readings -continue lisinopril and hydralazine Former Smoker -supportive care RAYNE ALVAREZ DO 08/22/23 0436: Subjective Subjective/Events-last exam Patient doing a lot better Less pain Moving around better Objective Exam General: Alert, Oriented X3, Cooperative, No Acute Distress Lungs: Clear to Auscultation, Normal Air Movement Heart: Regular Rate, Normal S1, Normal S2, No Murmurs Psych/Mental Status: Mental Status NL, Mood NL Assessment/Plan Assessment/Plan Assess & Plan/Chief Complaint Pain management Monitor blood pressure Replace potassium Supervisory-Addendum Brief Verification & Attestation Participated in pt care: history, MDM, physical Personally performed: exam, history, MDM, supervision of care Care discussed with: Medical Student Procedures: n/a Results interpretation: Verified all documentation Verification and Attestation of Medical Student E/M Service A medical student performed and documented this service in my presence. I reviewed and verified all information documented by the medical student and made modifications to such information, when appropriate. I personally performed the physical exam and medical decision making. Rayne Alvarez, Aug 22, 2023,04:35 JAGDISH KHALIL Aug 21, 2023 10:37 RAYNE ALVAREZ DO Aug 22, 2023 04:36
--- NOTE | 2023-08-21 12:36 | Anesthesia-Regional Post-Op ---
Regional Patient Condition Mental Status: Alert, Oriented x3 Circulation: Same as Pre-Op Headache: Absent Sensation: Full Recovery Motor Block: Absent Post Op Complications Complications None Follow Up Care/Instructions Patient Instructions None needed. Anesthesia/Patient Condition Patient is doing well, no complaints, stable vital signs, no apparent adverse anesthesia problems. No complications reported per nursing. DARLIN VIDAL CRNA Aug 21, 2023 12:36
--- NOTE | 2023-08-21 14:04 | Physical Therapy Daily Note ---
PT Daily Note-Current Subjective Patient has increase c/o left knee pain. Pain meds have been issued prior to therapy session. Pain Section J - Health Conditions 1. Rarely or not at all 2. Occasionally 3. Frequently 4. Almost constantly 8. Unable to answer Pain Effect on Sleep: 3 Pain Interference with Therapy: 2 Pain Interference w/Day-to-Day: 2 Transfers SCALE: Activities may be completed with or without assistive devices. 6-Ejskidxjtf-zqvnjjj completes the activity by him/herself with no assistance from a helper. 5-Set-up or Clean-up Assistance-helper sets up or cleans up; patient completes activity. [place] assists only prior to or following the activity. 4-Supervision or Touching Assistance-helper provides verbal cues and/or touching/steadying and/or contact guard assistance as patient completes activity. Assistance may be provided throughout the activity or intermittently. 3-Partial/Moderate Assistance-helper does LESS THAN HALF the effort. [place] lifts, holds or supports trunk or limbs, but provides less than half the effort. 2-Substantial/Maximal Assistance-helper does MORE THAN HALF the effort. [place] lifts or holds trunk or limbs and provides more than half the effort. 5-Osrvnefcp-zheaig does ALL the effort. Patient does none of the effort to complete the activity. Or, the assistance of 2 or more helpers is required for the patient to complete the activity. If activity was not attempted, code reason: 7-Patient Refused. 9-Not Applicable-not attempted and the patient did not perform the activity before the current illness, exacerbation or injury. 10-Not Attempted due to Environmental Limitations-(lack of equipment, weather restraints, etc.). 88-Not Attempted due to Medical Conditions or Safety Concerns. Sit to Lying (QC): 6 Lying to Sitting/Side of Bed(Q: 6 Sit to Stand (QC): 6 Weight Bearing Right Lower Extremity: Right Full Weight Bearing Left Lower Extremity: Left Weight Bearing/Tolerated Gait Training Distance: 250' Walk 10 feet (QC): 6 Walk 50 ft with 2 Turns(QC): 6 Walk 150 ft (QC): 6 Gait Assistive Device: FWW antalgic, reciprocal pattern Exercises Supine Ex: Ankle pumps, Quad Set, Heel Slides, Straight leg raise (difficulty with activating quad) Supine Reps: 15 Seated Therapy Exercises: Long arc quads Seated Reps: 15 Assessment Patient AROM left knee flexion limited due to pain. Patient reports she has been up and ambulating PRN. PT to issue HEP tomorrow a.m. session. PT educated patient on performing exercises PRN as well as ambulating. Patient voices understanding. 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 PT [facility] Goals Time Frame: Aug 25, 2023 Roll Left & Right (QC): 6 Sit to Lying (QC): 6 Lying-Sitting on Side/Bed(QC): 6 Sit to Stand (QC): 6 Chair/Urg-cz-Fgbrd Xfer(QC): 6 Toilet Transfer (QC): 6 Walk 10 feet (QC): 6 Walk 50ft with 2 Turns (QC): 6 Walk 150 ft (QC): 6 PT Plan Treatment/Plan Treatment Plan: Continue Plan of Care Treatment Plan: Bed Mobility, Education, Functional Activity Joshua, Functional Strength, Gait, Safety, Therapeutic Exercise, Transfers Treatment Duration: Aug 25, 2023 Frequency: 11 times per week Estimated Hrs Per Day: .5 hour per day Patient and/or Family Agrees t: Yes Time Time In: 1330 Time Out: 1354 DATE: Aug 21, 2023 Total Billed Treatment Time: 24 Total Billed Treatment 1 visit EX 15 min GT 9 min LUIS MIGUEL LARSEN PT Aug 21, 2023 14:04
[2023-08-21] MEDS: LORazepam 0.5 MG TABLET PO PRN (20:02)
[2023-08-22] MEDS: morphine INJ 4 MG/ML 1 ML (VIAL/SYRINGE) IVP PRN (00:23)
[2023-08-22] MEDS: HYDROcodone/ACETAMINOPHEN 10/325 TABLET PO PRN ×3 (03:30→13:35)
[2023-08-22] MEDS: THERAPEUTIC MULTIVITAMIN W/MINERALS TABLET PO SCH (05:11)
[2023-08-22 05:25] LABS: BASOPHILS % (AUTO) 0 % (0-10); EOSINOPHILS # (AUTO) 0.1 10^3/uL (0.0-0.3); EOSINOPHILS % (AUTO) 2 % (0-10); HEMATOCRIT 32 % (35-52); HEMOGLOBIN 11.2 g/dL (11.5-16.0); LYMPHOCYTES # (AUTO) 2.1 10^3/uL (1.0-4.0); LYMPHOCYTES % (AUTO) 26 % (12-44); MEAN CORPUSCULAR HEMOGLOBIN 33 pg (25-34); MEAN CORPUSCULAR HGB CONC 35 g/dL (32-36); MEAN CORPUSCULAR VOLUME 95 fL (80-99); MEAN PLATELET VOLUME 9.9 fL (9.0-12.2); MONOCYTES # (AUTO) 0.9 10^3/uL (0.0-1.0); MONOCYTES % (AUTO) 11 % (0-12); NEUTROPHILS # (AUTO) 4.9 10^3/uL (1.8-7.8); NEUTROPHILS % (AUTO) 61 % (42-75); PLATELET COUNT 248 10^3/uL (130-400); WHITE BLOOD COUNT 8.1 10^3/uL (4.3-11.0)
[2023-08-22 05:40] LABS: ALBUMIN 3.7 GM/DL (3.2-4.5); BILIRUBIN,TOTAL 0.5 MG/DL (0.1-1.0); CREATININE SERUM 0.62 MG/DL (0.60-1.30); POTASSIUM 3.9 MMOL/L (3.6-5.0); TOTAL PROTEIN 6.2 GM/DL (6.4-8.2)
[2023-08-22 07:42] VITALS: BP 151/85
[2023-08-22] MEDS: METHOCARBAMOL 750 MG TABLET PO SCH (08:09)
[2023-08-22] MEDS: CELECOXIB 100 MG CAPSULE PO SCH (08:09)
[2023-08-22] MEDS: amLODIPine 10 MG TABLET PO SCH (08:09)
[2023-08-22] MEDS: ASPIRIN enteric coated 81MG TABLET PO SCH (08:09)
[2023-08-22] MEDS: ACYCLOVIR 400 MG CAPSULE/TABLET PO SCH (08:12)
[2023-08-22] MEDS: DOCUSATE SODIUM 100 MG CAPSULE PO SCH (08:12)
[2023-08-22] MEDS ORDERED: ACHYD1T PO (08:21)
[2023-08-22] MEDS ORDERED: ASPI-1238 PO (08:21)
--- NOTE | 2023-08-22 08:26 | Discharge Summary ---
Discharge Summary Hospital Course Hospital Course Date of Admission: 08/20/23 Admission Diagnosis : Left Knee Osteoarthritis Family Physician/Provider: Alex James MD Date of Discharge: 08/22/23 Discharge Diagnosis: [ Left Knee Primary Osteoarthritis s/p TKA] Hospital Course: [On 08/20/23, patient underwent left total knee arthroplasty. Tolerated the procedure well and was transferred to the regular floor. On the day of surgery, began mechanical DVT prophylaxis and started to work with therapy. On POD #1, made good progress with therapy and began chemical DVT prophylaxis. On POD #2, continued to make progress with therapy and home health therapy arrangements were made. Patient was ready for discharge home. ] Labs and Pending Lab Test: Laboratory Tests 08/22/23 05:05: White Blood Count 8.1, Red Blood Count 3.35L, Hemoglobin 11.2L, Hematocrit 32L, Mean Corpuscular Volume 95, Mean Corpuscular Hemoglobin 33, Mean Corpuscular Hemoglobin Concent 35, Red Cell Distribution Width 11.8, Platelet Count 248, Mean Platelet Volume 9.9, Immature Granulocyte % (Auto) 0, Neutrophils (%) (Auto) 61, Lymphocytes (%) (Auto) 26, Monocytes (%) (Auto) 11, Eosinophils (%) (Auto) 2, Basophils (%) (Auto) 0, Neutrophils # (Auto) 4.9, Lymphocytes # (Auto) 2.1, Monocytes # (Auto) 0.9, Eosinophils # (Auto) 0.1, Basophils # (Auto) 0.0, Immature Granulocyte # (Auto) 0.0, Sodium Level 134L, Potassium Level 3.9, C hloride Level 97L, Carbon Dioxide Level 27, Anion Gap 10, Blood Urea Nitrogen 7, Creatinine 0.62, Estimat Glomerular Filtration Rate 104, BUN/Creatinine Ratio 11, Glucose Level 114H, Calcium Level 9.0, Corrected Calcium 9.2, Total Bilirubin 0.5, Aspartate Amino Transf (AST/SGOT) 16, Alanine Aminotransferase (ALT/SGPT) 6, Alkaline Phosphatase 82, Total Protein 6.2L, Albumin 3.7 Home Meds Active Aspirin EC (Aspirin) 81 Mg Tablet.dr 81 Mg PO BID WITH MEALS 14 Days Reported Acyclovir 400 Mg Tablet 400 Mg PO DAILY Hydrocodone-Acetamin 10-325 mg (Hydrocodone/Acetaminophen) 10 Mg-325 Mg Tablet 1 Each PO QID PRN Methocarbamol 750 Mg Tablet 750 Mg PO BID Amlodipine Besylate 10 Mg Tablet 10 Mg PO DAILY Lisinopril-Hctz 20-25 mg Tab (Lisinopril/Hydrochlorothiazide) 20 Mg-25 Mg Tablet 1 Each PO DAILY Assessment/Pt Instructions WBAT on left leg; use walker for assist. Dry dressing daily to incision site; do not get incision wet. Home health therapy for motion/strengthening/gait training. F/U with Dr. Pascual Lee ~2 weeks after surgery. Discharge Physical Examination Vital Signs Vital Signs Date Time Temp Pulse Resp B/P (MAP) Pulse Ox O2 Delivery O2 Flow Rate FiO2 08/22/23 07:42 36.9 107 16 151/85 (107) 94 Room Air Extremity: Other (Incision C/D/I, +DF of ankle, no s/s of DVT) Allergies: Coded Allergies: Penicillins (Unverified Allergy, Severe, HIVES, 08/14/23) Discharge Summary Date of Admission Date of Discharge PASCUAL LEE MD Aug 22, 2023 08:26
--- NOTE | 2023-08-22 08:28 | D/C HH Face to Face Order ---
D/C Face to Face Orders Instructions for Patient [facility], Patient Instructions/FollowUp: WBAT on r/l leg; use walker for assist. Dry dressing daily to incision site; do not get incision wet. Home health therapy for motion/strengthening/gait training. F/U with Dr. Pascual Lee ~2 weeks after surgery. Physician to follow Patient: Pascual Lee MD Discharge Diet for Home: No Restrictions Patient Data-Allergies,Ht & Wt Patient Allergies: Coded Allergies: Penicillins (Unverified Allergy, Severe, HIVES, 08/14/23) Home Health Need/Face to Face Date of Face to Face: Aug 22, 2023 Clinical Findings: Muscle weakness, Pain with ambulation I have seen Pt lubs-el-viiz: Yes Discharged To: Home Diagnosis/Conditions: Left Knee OA s/p TKA Patient is Homebound due to: Muscle weakness, Pain w/ambulation Homebound Status Due to the above stated illness, injury or surgical procedure (medical condition or diagnosis) and associated clinical findings, the patient is homebound because of his/her inability to leave home except with aid of a supportive device and/or person AND leaving the home requires a considerable and taxing effort or is medically contraindicated. Pt req the following assistanc: Walker Home Health Nursing Orders Home Health Services Order: Physical Therapy-Evaluate & Treat Home Health Infusion Therapy Line Start Date: Aug 20, 2023 Therapy Orders Therapy Specific Orders: Gait training, Increase strength/endurance, Restore ROM Certify Stmt I certify that this patient is under my care and that I, a nurse practitioner or a physician; a fitness assistant working with me, had a face to face encounter that - meets the physician face to face encounter requirements with this patient as dated. PASCUAL LEE MD Aug 22, 2023 08:28
--- NOTE | 2023-08-22 09:40 | Physical Therapy Daily Note ---
PT Daily Note-Current Subjective Patient standing be bathroom donning her pants upon PT arrival, agreeable to treatment. Patient rates pain at 4-5/10 currently in left knee. Pain Section J - Health Conditions 1. Rarely or not at all 2. Occasionally 3. Frequently 4. Almost constantly 8. Unable to answer Pain Effect on Sleep: 3 Pain Interference with Therapy: 2 Pain Interference w/Day-to-Day: 2 Transfers SCALE: Activities may be completed with or without assistive devices. 8-Slygmuwzox-wfzqysp completes the activity by him/herself with no assistance from a helper. 5-Set-up or Clean-up Assistance-helper sets up or cleans up; patient completes activity. [place] assists only prior to or following the activity. 4-Supervision or Touching Assistance-helper provides verbal cues and/or touching/steadying and/or contact guard assistance as patient completes acti vity. Assistance may be provided throughout the activity or intermittently. 3-Partial/Moderate Assistance-helper does LESS THAN HALF the effort. [place] lifts, holds or supports trunk or limbs, but provides less than half the effort. 2-Substantial/Maximal Assistance-helper does MORE THAN HALF the effort. [place] lifts or holds trunk or limbs and provides more than half the effort. 4-Axtjzgdkg-lmpgod does ALL the effort. Patient does none of the effort to complete the activity. Or, the assistance of 2 or more helpers is required for the patient to complete the activity. If activity was not attempted, code reason: 7-Patient Refused. 9-Not Applicable-not attempted and the patient did not perform the activity before the current illness, exacerbation or injury. 10-Not Attempted due to Environmental Limitations-(lack of equipment, weather restraints, etc.). 88-Not Attempted due to Medical Conditions or Safety Concerns. Roll Left & Right (QC): 6 Sit to Lying (QC): 6 Lying to Sitting/Side of Bed(Q: 6 Sit to Stand (QC): 6 Chair/Gby-fo-Glqcu Xfer(QC): 6 Toilet Transfer (QC): 6 Weight Bearing Right Lower Extremity: Right Full Weight Bearing Left Lower Extremity: Left Weight Bearing/Tolerated Gait Training Does the Patient Walk?: Yes Distance: 300' Walk 10 feet (QC): 6 Walk 50 ft with 2 Turns(QC): 4 Walk 150 ft (QC): 4 Gait Assistive Device: FWW Stair Training Stair Training: Handrails/: 1 handrail #of Steps: 6 1 Step (curb) (QC): 4 4 Steps (QC): 4 Stairs: Pattern: Step to Assessment Current Status: Good Progress Patient tolerated treatment well. Performs all bed mobility and transfers with independence. Patient ambulates 300 feet with FWW, with SBA and verbal cues for gait pattern. Patient ascends/descends 6 steps with right handrail, with CGA and verbal cues. Patient in chair post treatment with all needs met, nursing notified, call light in hand. 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 PT [facility] Goals Time Frame: Aug 25, 2023 Roll Left & Right (QC): 6 Sit to Lying (QC): 6 Lying-Sitting on Side/Bed(QC): 6 Sit to Stand (QC): 6 Chair/Rdo-iw-Xupwi Xfer(QC): 6 Toilet Transfer (QC): 6 Walk 10 feet (QC): 6 Walk 50ft with 2 Turns (QC): 6 Walk 150 ft (QC): 6 PT Plan Treatment/Plan Treatment Plan: Continue Plan of Care Treatment Plan: Bed Mobility, Education, Functional Activity Joshua, Functional Strength, Gait, Safety, Therapeutic Exercise, Transfers Treatment Duration: Aug 25, 2023 Frequency: 11 times per week Estimated Hrs Per Day: .5 hour per day Patient and/or Family Agrees t: Yes Safety Risks/Education Patient Education: Gait Training, Transfer Techniques, Steps Teaching Recipient: Patient Teaching Methods: Demonstration, Discussion Response to Teaching: Verbalize Understanding, Return Demonstration Time Time In: 840 Time Out: 853 DATE: Aug 22, 2023 Total Billed Treatment Time: 13 Total Billed Treatment Visit, GT MARICRUZ PEREIRA PT Aug 22, 2023 09:39
[2023-08-22] MEDS: NS IV 1000 ML 1,000 ML IV SCH (13:21)
--- NOTE | 2023-08-22 13:59 | Progress Note ---
JAGDISH KHALIL 08/22/23 1359: Subjective Date Seen by a Provider: Aug 22, 2023 Time Seen by a Provider: 10:30 Subjective/Events-last exam Pt states that she is moving around better today. She is in pain, rates 6/10 when bending her left knee. She verbalized that therapy wants her to bend her left knee but it has been causing her too much pain. She denies having any weakness. She has been using a walker to move around her room and the halls. She wants to go home today. Review of Systems General: No Chills, No Night Sweats HEENT: No Head Aches, No Eye Pain, No Ear Pain Pulmonary: No Cough Cardiovascular: No: Chest Pain, Palpitations Gastrointestinal: No: Nausea, Vomiting, Abdominal Pain Musculoskeletal: other (left knee pain) Neurological: No: Weakness, Numbness, Change in speech, Confusion Objective Exam Last Set of Vital Signs Vital Signs Date Time Temp Pulse Resp B/P (MAP) Pulse Ox O2 Delivery O2 Flow Rate FiO2 08/22/23 08:00 Room Air 08/22/23 07:42 36.9 107 16 151/85 (107) 94 Capillary Refill : Less Than 3 Seconds I&O Intake and Output 08/21/23 23:59 Intake Total 6500 ml Output Total 5300 ml Balance 1200 ml Intake Oral 5450 ml IV Total 1050 ml Output Urine Total 5300 ml # Voids 8 General: Alert, Oriented X3, Cooperative, No Acute Distress HEENT: PERRLA, EOMI Neck: No JVD, No Thyromegaly Lungs: Clear to Auscultation, Normal Air Movement Heart: Regular Rate, Normal S1, Normal S2, No Murmurs Abdomen: Normal Bowel Sounds, Soft, No Tenderness Extremities: No Clubbing, No Cyanosis, Normal Pulses (2+ b/l radialis and post tibialis), Other (LLE tenderness. Localized to anterior knee.) Neuro: Normal Speech, Sensation Intact, Cranial Nerves 3-12 NL Psych/Mental Status: Mental Status NL, Mood NL Results Lab Laboratory Tests 08/22/23 05:05: White Blood Count 8.1, Red Blood Count 3.35L, Hemoglobin 11.2L, Hematocrit 32L, Mean Corpuscular Volume 95, Mean Corpuscular Hemoglobin 33, Mean Corpuscular Hemoglobin Concent 35, Red Cell Distribution Width 11.8, Platelet Count 248, Mean Platelet Volume 9.9, Immature Granulocyte % (Auto) 0, Neutrophils (%) (Auto) 61, Lymphocytes (%) (Auto) 26, Monocytes (%) (Auto) 11, Eosinophils (%) (Auto) 2, Basophils (%) (Auto) 0, Neutrophils # (Auto) 4.9, Lymphocytes # (Auto) 2.1, Monocytes # (Auto) 0.9, Eosinophils # (Auto) 0.1, Basophils # (Auto) 0.0, Immature Granulocyte # (Auto) 0.0, Sodium Level 134L, Potassium Level 3.9, Chloride Level 97L, Carbon Dioxide Level 27, Anion Gap 10, Blood Urea Nitrogen 7, Creatinine 0.62, Estimat Glomerular Filtration Rate 104, BUN/Creatinine Ratio 11, Glucose Level 114H, Calcium Level 9.0, Corrected Calcium 9.2, Total Bilirubin 0.5, Aspartate Amino Transf (AST/SGOT) 16, Alanine Aminotransferase (ALT/SGPT) 6, Alkaline Phosphatase 82, Total Protein 6.2L, Albumin 3.7 Assessment/Plan Assessment/Plan Assess & Plan/Chief Complaint Assessment: Left Knee Osteoarthritis s/p Total Knee Arthroplasty HTN Former Smoker Plan: Left Knee Osteoarthritis s/p Total Knee Arthroplasty -pt will be discharged today -pain medications will be sent to her pharmacy HTN -continue lisinopril and hydralazine Former Smoker -supportive care RAYNE ALVAREZ DO 08/22/232103: Subjective Subjective/Events-last exam Patient doing much better Pain is controlled Will discharge today Objective Exam General: Alert, Oriented X3, Cooperative, No Acute Distress Assessment/Plan Assessment/Plan Assess & Plan/Chief Complaint [place] home Supervisory-Addendum Brief Verification & Attestation Participated in pt care: history, MDM, physical Personally performed: exam, history, MDM, supervision of care Care discussed with: Medical Student Procedures: n/a Results interpretation: Verified all documentation Verification and Attestation of Medical Student E/M Service A medical student performed and documented this service in my presence. I reviewed and verified all information documented by the medical student and made modifications to such information, when appropriate. I personally performed the physical exam and medical decision making. Rayne Alvarez Aug 22, 2023,21:03 JAGDISH KHALIL Aug 22, 2023 13:59 RAYNE ALVAREZ DO Aug 22, 2023 21:04
== END 2023-08-22 15:15 | disposition home health service (06) ==
LOC: SDC 07:09 → EDSTATUS 07:30 → 4TH 11:52 → SDC 08-22 15:15
PROVIDERS: ATTEND Orthopaedic Surgery
DX: M17.12 Unilateral primary osteoarthritis, left knee (principal); I10 Essential (primary) hypertension; Z87.891 Personal history of nicotine dependence; Z88.0 Allergy status to penicillin
CPT/HCPCS: 36415; 73560; 80053; 85025